=== PATIENT | male | born 1940 | race Caucasian/White ===

== ENCOUNTER 2017-02-18 16:19 | Inpatient (IN) | payer MEDICARE, OTHER ==
[~2017-02-18] VITALS: Ht 190.5 cm; Wt 70.5 kg
[~2017-02-18 16:19] MED LIST: ACET-2154 PO; BENZ2AMP PO; CARB-93 PO; CLON0.5T PO; DEXT1CAP3 PO; FINA5TAB11 PO; HYDR-552 PO; LANS30TA4 PO; LORA-258 PO; MAGN400O6 PO; MELA1TAB10 PO; MULT-74 PO; NA P133E RC; QUET25TA PO; TAMS-3 PO; VALP250S17 PO
--- NOTE | 2017-02-18 16:47 | NUR ---
Code stroke activated per Dr. La order.
--- NOTE | 2017-02-18 16:49 | NUR ---
Telestroke line called [phone], Dr Castellanos to call back.
--- NOTE | 2017-02-18 16:53 | NUR ---
Dr. La spoke with Dr. Castellanos (neuro) via telephone.
--- NOTE | 2017-02-18 16:58 | NUR ---
Pt to CT via loi with ACLS guidelines in place with distribution tech Young HEATH.
[2017-02-18 17:05] LABS: BASOPHILS % (AUTO) 0.6 % (0.0-2.0); HEMATOCRIT 39.1 % (40-50); HEMOGLOBIN 12.6 G/DL (14.0-18.0); LYMPHOCYTES % (AUTO) 24.9 % (20.5-51.5); MEAN CORPUSCULAR HGB CONC 32 g/dL (32.0-37.0); MEAN CORPUSCULAR VOLUME 93.1 FL (82.0-92.0); MONOCYTES # (AUTO) 0.4 K/UL (0.1-1.30); NEUTROPHILS # (AUTO) 2.7 K/UL (1.8-8.9); NEUTROPHILS % (AUTO) 64.5 % (38.5-71.5); PLATELET COUNT (AUTO) 366 K/UL (150-450); WHITE BLOOD COUNT (AUTO) 4.1 K/UL (4.0-11.2)
[2017-02-18 17:13] LABS: CARBON DIOXIDE 29 mmol/L (21-32); CHLORIDE 91 mmol/L (98-107); CREATININE 0.7 mg/dL (0.6-1.3); GLUCOSE 110 mg/dL (74-106); POTASSIUM 4.2 mmol/L (3.5-5.1); UREA NITROGEN, BLOOD 11 mg/dL (7-18)
[2017-02-18] MEDS ORDERED: OMEP20CA10 PO (17:18)
[2017-02-18] MEDS ORDERED: PALI234D IM (17:18)
[2017-02-18] MEDS ORDERED: MIRT15TA PO (17:18)
[2017-02-18] MEDS ORDERED: RISP2TAB5 PO (17:18)
[2017-02-18] MEDS ORDERED: OXCA300T4 PO (17:18)
[2017-02-18] MEDS ORDERED: MAG355OR18 PO (17:18)
[2017-02-18] MEDS ORDERED: PSYLLIUM PACKET PO (17:18)
[2017-02-18] MEDS ORDERED: DOCU250C14 PO (17:18)
[2017-02-18] MEDS ORDERED: ZOLP5TAB2 PO (17:18)
[2017-02-18] MEDS ORDERED: BISA5TAB13 PR (17:18)
[2017-02-18 17:19] LABS: ALANINE AMINOTRANSFERASE 12 U/L (16-63); ALKALINE PHOSPHATASE 177 U/L (50-136); ASPARTATE AMINOTRANSFERASE 16 U/L (15-37); BILIRUBIN,DIRECT 0.1 mg/dL (0.0-0.2); BILIRUBIN,TOTAL 0.3 mg/dL (0.2-1.0); TOTAL PROTEIN, SERUM 7.3 g/dL (6.4-8.2)
[2017-02-18] MEDS ORDERED: NORMAL SALINE FLUSH 10 ML DISP.SYRIN ONE (17:19)
[2017-02-18] MEDS ORDERED: IV NORMAL SALINE 250 ML IV ONE (17:19)
[2017-02-18] MEDS ORDERED: IOHEXOL 350 100 ML INFUS..BTL ONE ×2 (17:19→17:29)
--- NOTE | 2017-02-18 17:27 | NUR ---
Pt back from CT, at bedside.
--- NOTE | 2017-02-18 17:35 | NUR ---
Used [employer] interpretation services ( rotary saw operator # [id number] ).
[2017-02-18 18:21] LABS: *BILIRUBIN,URIN NEGATIVE (NEGATIVE); *BLOOD, URINE 2+ (NEGATIVE); *CLARITY,URINE CLEAR (CLEAR); *COLOR,URINE LIGHT YELLOW (YELLOW); *KETONES,URINE NEGATIVE (NEGATIVE); *PROTEIN,URINE NEGATIVE (NEGATIVE); *UROBILINOGEN,URINE 0.2 E.U./dl (NORMAL); LEUKOCYTE ESTERASE ,URINE NEGATIVE (NEGATIVE); NITRITE, URINE NEGATIVE (NEGATIVE); UGLUCOSE NEGATIVE (NEGATIVE)
[2017-02-18 18:27] LABS: BACTERIA,URINE FEW /HPF (NONE SEEN); RBC,URINE 20-50 /HPF (0-3); SQUAMOUS EPITHELIAL CELL,UR FEW /HPF (NONE SEEN); WBC,URINE NONE SEEN /HPF (0-3)
[2017-02-18] MEDS: ASPIRIN 325 MG TABLET PO ONE ×2 (18:57→19:01)
--- NOTE | 2017-02-18 19:05 | NUR ---
PT PULLED UOT HIS IV [address] ZULUAGA NOTIFIED. REPORT WAS GIVEN TO VAMP THROATER RN.
[2017-02-18] MEDS ORDERED: ASPIRIN 300 MG RECTAL SUPP RC ONE ×2 (19:15→19:35)
--- NOTE | 2017-02-18 19:28 | NUR ---
Received report from KUMAR Harmon. Assumed care of pt at this time. Pt resting in position of comfort for self. No complaints at this time. Admission pending.
--- NOTE | 2017-02-18 20:00 | NUR ---
Report called to KUMAR Holman. Preparing to transfer pt to the floor.;
[2017-02-18 20:40] VITALS: BP 147/83
[2017-02-18] MEDS ORDERED: ATORVASTATIN 40 MG TABLET PO SCH (21:00)
--- NOTE | 2017-02-18 21:00 | NUR ---
RECEIVED PT FROM ER. PT IS ALERT AND RESPONSIVE, MALAY SPEAKING ABLE TO UNDERSTAND KYRGYZ. RESP IS EVEN AND UNLABORED. NO SOB. PT ABLE TO SWALLOW WATER WITHOUT ANY ISSUES. PT ON TELE WITH SR C FEW PACs. PT WITH MILD WEAKNESS ON BOTH UE AND MILD WEAKNESS OF RIGHT LE AND MODERATE WEAKNESS ON LEFT LE.
[2017-02-18] MEDS: TAMSULOSIN HCL 0.4 MG CAP.SR.24H PO SCH (22:25)
[2017-02-18] MEDS: MIRTAZAPINE 15 MG TABLET PO SCH (22:25)
[2017-02-18] MEDS ORDERED: TAMSULOSIN HCL 0.4 MG CAP.SR.24H ONE (22:30)
[2017-02-18] MEDS ORDERED: MIRTAZAPINE 15 MG TABLET ONE (22:31)
[2017-02-18] MEDS ORDERED: ONDANSETRON 4 MG/2 ML VIAL IV PRN (22:45)
[2017-02-18 23:59] VITALS: BP 140/80
[2017-02-19 04:00] VITALS: BP 133/81
--- NOTE | 2017-02-19 05:00 | NUR ---
(CONT.) EDUCATED PT OF IMPORTANCE OF KEEPING TELE MONITORING. ATTEMPTED TO REAPPLY TELE MONITORING BUT PT STATED "DON'T DO THAT, DON'T DO THAT". PTS RIGHTS RESPECTED.
--- NOTE | 2017-02-19 05:00 | NUR ---
PT IN BED, AWAKE AND ALERT. NOTED TELE MONITORING WAS UNATTACHED AND TELE BOX WAS THROWN ON THE FLOOR. INFORMED PT OF IMPORTANCE OF KEEPING TELE MONITORING.
[2017-02-19 07:00] LABS: BASOPHILS % (AUTO) 0.2 % (0.0-2.0); EOSINOPHILS # (AUTO) 0.1 K/uL (0.0-0.7); EOSINOPHILS % (AUTO) 1.4 % (0.0-7.0); HEMATOCRIT 40.3 % (40-50); HEMOGLOBIN 13.1 G/DL (14.0-18.0); LYMPHOCYTES # (AUTO) 0.9 K/UL (0.8-4.8); LYMPHOCYTES % (AUTO) 20.5 % (20.5-51.5); MEAN CORPUSCULAR HEMOGLOBIN 29.9 UUG (27.0-31.0); MEAN CORPUSCULAR HGB CONC 33 g/dL (32.0-37.0); MEAN CORPUSCULAR VOLUME 91.8 FL (82.0-92.0); MONOCYTES # (AUTO) 0.5 K/UL (0.1-1.30); MONOCYTES % (AUTO) 10.8 % (0.0-11.0); NEUTROPHILS # (AUTO) 2.8 K/UL (1.8-8.9); NEUTROPHILS % (AUTO) 67.1 % (38.5-71.5); PLATELET COUNT (AUTO) 351 K/UL (150-450); WHITE BLOOD COUNT (AUTO) 4.3 K/UL (4.0-11.2)
--- NOTE | 2017-02-19 07:07 | NUR ---
PT IN BED, RESTING COMFORTABLY. RESP IS EVEN AND UNLABORED NO SOB,NO ACUTE DISTRESS. PT ON TELE WITH SR. CALL LIGHT WITHIN REACH. ENDORSED CARE TO AM SHIFT.
[2017-02-19 07:44] LABS: THYROID STIMULATING HORMONE 3.376 mIU/mL (0.358-3.740)
--- NOTE | 2017-02-19 07:45 | NUR ---
Upon initial assessment patient found bleeding from IV site to RFA apparently he pull it forcefully. and a new IV access inserted by quality process engineer pranav Whipple. At this time patient again forcefully remove new iv inserted to left hand. Dr. Linn notifie, that patient is restless, agitated, and refusing at this time telemetry monitoring. telemetry box found on the floor for the 2nd time. And as reported patient is been refusing it intermittently throughout the night.
--- NOTE | 2017-02-19 07:50 | NUR ---
Dr. Menchaca in to examine patient, and informed of events. Orders for a 1:1 sitter obtained at this time. edge burnisher notified.
[2017-02-19 08:13] LABS: ALANINE AMINOTRANSFERASE 19 U/L (16-63); ALKALINE PHOSPHATASE 177 U/L (50-136); ASPARTATE AMINOTRANSFERASE 19 U/L (15-37); BILIRUBIN,TOTAL 0.4 mg/dL (0.2-1.0); CARBON DIOXIDE 27 mmol/L (21-32); CHLORIDE 92 mmol/L (98-107); CHOLESTEROL 168 mg/dL (<200); CREATININE 0.8 mg/dL (0.6-1.3); GLUCOSE 80 mg/dL (74-106); HDL CHOLESTEROL 97 mg/dL (40-60); PHOSPHOROUS 3.1 mg/dL (2.5-4.9); POTASSIUM 3.7 mmol/L (3.5-5.1); TRIGLYCERIDES 50 MG/DL (30-150); UREA NITROGEN, BLOOD 8 mg/dL (7-18)
[2017-02-19] MEDS ORDERED: MULTIVIT, IRON, MIN NO. 8, FA TABLET PO SCH ×2 (09:15→09:40)
[2017-02-19] MEDS ORDERED: BISACODYL 10 MG SUPP.RECT RC PRN (09:15)
[2017-02-19] MEDS ORDERED: MAG HYDROX/AL HYDROX/SIMETH 30 ML LIQUID UDC PO PRN (09:15)
[2017-02-19] MEDS ORDERED: ACETAMINOPHEN 325 MG TABLET PO PRN (09:15)
[2017-02-19] MEDS ORDERED: Medication Not On Formulary EA (Melatonin/Pyridoxine (Melatonin 3 Mg Tablet) 1 EACH) PO PRN (09:15)
[2017-02-19] MEDS ORDERED: ZOLPIDEM 5 MG TABLET PO PRN (09:15)
[2017-02-19] MEDS ORDERED: MAGNESIUM HYDROXIDE 30 ML LIQUID UDC PO PRN (09:15)
[2017-02-19] MEDS ORDERED: FLEET ENEMA 133 ML BOTTLE RC PRN (09:15)
[2017-02-19] MEDS ORDERED: OXCARBAZEPINE 300 MG TABLET PO SCH (09:15)
--- NOTE | 2017-02-19 11:08 | NUR ---
A call to PT's daughter Lola Jang to obtain consent for MRI. patient restless and agitated at this time.
[2017-02-19 11:29] VITALS: BP 110/72
[2017-02-19] MEDS: risperiDONE 2 MG TABLET PO SCH ×3 (12:19→17:14)
[2017-02-19] MEDS: BENZTROPINE MESYLATE 0.5 MG TABLET PO SCH ×3 (12:19→17:14)
[2017-02-19] MEDS: CARBIDOPA/LEVODOPA 25-100MG TABLET PO SCH ×3 (12:19→17:14)
[2017-02-19] MEDS: DOCUSATE SODIUM 250 MG CAPSULE PO SCH (12:19)
[2017-02-19] MEDS: PSYLLIUM SEED PACKET PO SCH ×2 (12:19→17:14)
[2017-02-19] MEDS: FINASTERIDE 5 MG TABLET PO SCH (12:20)
[2017-02-19] MEDS: OXCARBAZEPINE 300 MG TABLET PO SCH ×2 (12:20→17:14)
[2017-02-19] MEDS: MULTIVIT, IRON, MIN NO. 8, FA TABLET PO SCH (12:20)
--- NOTE | 2017-02-19 12:32 | NUR ---
Patient is been refusing his medications throughout the morning he finally agree to take them and 1300 not administered. Pharmacist notified.
[2017-02-19 15:59] VITALS: BP 119/74
--- NOTE | 2017-02-19 19:10 | NUR ---
patient went to MRI brain via ambulance.
[2017-02-19 20:00] VITALS: BP 122/74
[2017-02-19] MEDS ORDERED: MELATONIN 3 MG TABLET PO SCH (21:00)
[2017-02-19] MEDS ORDERED: TAMSULOSIN HCL 0.4 MG CAP.SR.24H PO SCH (21:00)
[2017-02-19] MEDS ORDERED: MIRTAZAPINE 15 MG TABLET PO SCH (21:00)
--- NOTE | 2017-02-19 21:00 | NUR ---
patient transfer to room 209 for close monitor, MRI of brain done.patient in no acute distress,alert, able to follow simple instructions, bilateral upper extremities slightly weakness, strength equal left and right, no facial droop when smile,continue 1:1 sitter for safety,needs attended.
[2017-02-19] MEDS: TAMSULOSIN HCL 0.4 MG CAP.SR.24H PO SCH (21:27)
[2017-02-19] MEDS: MIRTAZAPINE 15 MG TABLET PO SCH (21:28)
[2017-02-20] VITALS: BP 116/81
[2017-02-20 05:09] VITALS: BP 118/74
[2017-02-20] MEDS ORDERED: PANTOPRAZOLE SODIUM 40 MG TABLET.DR PO SCH (07:00)
[2017-02-20 07:01] LABS: CARBON DIOXIDE 30 mmol/L (21-32); CHLORIDE 95 mmol/L (98-107); GLUCOSE 90 mg/dL (74-106); PHOSPHOROUS 3.2 mg/dL (2.5-4.9); UREA NITROGEN, BLOOD 11 mg/dL (7-18); URIC ACID 2.5 mg/dL (3.5-7.2)
[2017-02-20] MEDS: risperiDONE 2 MG TABLET PO SCH (08:57)
[2017-02-20] MEDS: OXCARBAZEPINE 300 MG TABLET PO SCH ×2 (08:58→17:24)
[2017-02-20] MEDS: CARBIDOPA/LEVODOPA 25-100MG TABLET PO SCH ×4 (08:58→17:24)
[2017-02-20] MEDS: FINASTERIDE 5 MG TABLET PO SCH (08:58)
[2017-02-20] MEDS: DOCUSATE SODIUM 250 MG CAPSULE PO SCH (08:59)
[2017-02-20] MEDS: BENZTROPINE MESYLATE 0.5 MG TABLET PO SCH ×4 (08:59→17:24)
[2017-02-20] MEDS ORDERED: ASPIRIN EC 325 MG TABLET.DR PO SCH (09:00)
[2017-02-20] MEDS: PSYLLIUM SEED PACKET PO SCH ×2 (09:00→17:24)
[2017-02-20] MEDS: MULTIVIT, IRON, MIN NO. 8, FA TABLET PO SCH (10:32)
[2017-02-20 11:38] VITALS: BP 118/82
[2017-02-20] MEDS ORDERED: RISP1TAB7 PO (12:30)
[2017-02-20] MEDS ORDERED: ASPI-610 PO (12:30)
[2017-02-20] MEDS ORDERED: RISP2TAB5 PO (12:30)
[2017-02-20] MEDS: risperiDONE 1 MG TABLET PO SCH ×2 (12:34→12:41)
[2017-02-20 15:45] VITALS: BP 134/68
--- NOTE | 2017-02-20 16:06 | NUR ---
Discharge Plan: Once medically cleared patient will be discharged back to [facility] [[address] [facility] [address] ] room 9C. Patient will be transported via ambulance. Audrey [daughter [phone]] is aware and agreeable with the discharge plans.
[2017-02-20] MEDS ORDERED: risperiDONE 2 MG TABLET PO SCH (21:00)
[2017-03-01] MEDS ORDERED: HOME MED MISCELLANEOUS IM SCH (09:00)
== END 2017-02-20 18:50 | DRG 64 ==
LOC: ER 16:23 → TELE 20:14
PROVIDERS: ADMIT Internal Medicine; ATTEND Internal Medicine
DX: I63.9 Cerebral infarction, unspecified (principal); G93.41 Metabolic encephalopathy; E22.2 Syndrome of inappropriate secretion of antidiuretic hormone; N40.0 Benign prostatic hyperplasia without lower urinary tract symptoms; F20.9 Schizophrenia, unspecified; F03.90 Unspecified dementia, unspecified severity, without behavioral disturbance, psychotic disturbance, mood disturbance, and anxiety; R41.82 Altered mental status, unspecified; R53.1 Weakness; H40.9 Unspecified glaucoma; I10 Essential (primary) hypertension; R26.9 Unspecified abnormalities of gait and mobility; F32.9 Major depressive disorder, single episode, unspecified; R13.10 Dysphagia, unspecified; F29 Unspecified psychosis not due to a substance or known physiological condition; E53.8 Deficiency of other specified B group vitamins; H26.9 Unspecified cataract; M19.90 Unspecified osteoarthritis, unspecified site; I11.9 Hypertensive heart disease without heart failure; G20 Parkinson's disease
CPT/HCPCS: 36415; 51702; 70030-TC; 70450; 70496; 70551; 71010; 82746; 83605; 83735; 84100; 84443; 84550; 85025; 85651; 85730; 86850; 86900; 86901; 93005; 93880; 97161; J3490; J7050; Q9967